=== PATIENT | male | born 1975 | race Caucasian/White ===

== ENCOUNTER 2017-07-13 19:44 | Emergency (ER) | payer SELFPAY ==
[~2017-07-13] VITALS: Ht 182.9 cm; Wt 110.0 kg
[~2017-07-13 19:44] MED LIST: CLIN1CAP5 PO; METF500 PO
[2017-07-13 19:47] VITALS: BP 132/83; PULSE 92; RESP 16; TEMP 97.8; O2SAT 97
[2017-07-13 22:20] VITALS: BP 154/84; PULSE 90; RESP 18; O2SAT 98
--- NOTE | 2017-07-13 22:40 | PD ---
HPI Chief Complaint: Skin Problem Time Seen by Provider: 22:18 Travel History International Travel<30 days: No Contact w/Intl Traveler<30days: No Traveled to known affect area: No History of Present Illness HPI 42yo M presents with c/o rash in his right lower back. States it started with some tingling feeling between his scapula and then had a rash that felt like pins and needles in right lower back. States he noticed his bedsheets were wet yesterday so he may have had vesicles. Denies any fever, itching, chest pain, sob, vomiting, abdominal pain, focal weakness or numbness. Pt was an IVDA but clean for 8 months and currently in a program. PFSH Past Medical History Arthritis: Yes Autoimmune Disease: No Anxiety: No Depression: No Cancer: No Cardiovascular Problems: No Cerebrovascular Accident: No Diabetes: Yes Patient Takes Glucophage: No Diminished Hearing: No Endocrine: Yes Genitourinary: No Immune Disorder: No Musculoskeletal: No Neurologic: No Psychiatric: No Reproductive: No Respiratory: No Immunizations Current: Yes Migraines: No Seizures: No Thyroid Disease: No Tetanus Vaccination: Unknown Influenza Vaccination: No Past Surgical History Abdominal Surgery: No Cardiac Surgery: No Ear Surgery: No Endocrine Surgery: No Eye Surgery: No Genitourinary Surgery: No Gynecologic Surgery: No Oral Surgery: No Thoracic Surgery: No Other Surgery: Yes Social History Alcohol Use: No Tobacco Use: No Substance Use: No (no drugs for 8 months) Allergies-Medications (Allergen,Severity, Reaction): Coded Allergies: Sulfa (Sulfonamide Antibiotics) (Unverified Allergy, Severe, CHILD, ) Reported Meds & Prescriptions Reported Meds & Active Scripts Active Tylenol (Acetaminophen) 325 Mg Tab 650 Mg PO Q6H PRN 5 Days Gabapentin 300 Mg Cap 300 Mg PO HS 5 Days Acyclovir 800 Mg Tab 800 Mg PO 5 TIMES A DAY 7 Days Review of Systems Except as stated in HPI: all other systems reviewed are Neg Physical Exam Narrative GENERAL: 42yo M not in distress. SKIN: Clusters of erythematous plaques in L4-L5 dermatome on right, some crusting over old vesicles. HEAD: Atraumatic. Normocephalic. CARDIOVASCULAR: Regular rate and rhythm. No murmur appreciated. RESPIRATORY: No accessory muscle use. Clear to auscultation. Breath sounds equal bilaterally. GASTROINTESTINAL: Abdomen soft, non-tender, nondistended. No rebound tenderness or guarding. MUSCULOSKELETAL: No obvious deformities. No clubbing. No cyanosis. No edema. NEUROLOGICAL: Awake and alert. No obvious cranial nerve deficits. Motor grossly within normal limits. Normal speech. PSYCHIATRIC: Appropriate mood and affect; insight and judgment normal. Data Data Last Documented VS Vital Signs Date Time Temp Pulse Resp B/P (MAP) Pulse Ox O2 Delivery O2 Flow Rate FiO2 07/13/17 22:20 90 18 154/84 (107) 98 Room Air 07/13/17 19:47 97.8 MDM Medical Decision Making Medical Screen Exam Complete: Yes Emergency Medical Condition: Yes Differential Diagnosis Herpes zoster vs. atopic dermatitis Narrative Course 42yo M with rash in his back consistent with zoster where the vesicles had already ruptured. Pt states pain was more pins and needles. No itching although pt placed some cortisone cream on it after googling. No fever. Pt is well appearing and I discussed that antiviral is not as effective at this time but will still give it. Will write prescribe for gabapentin for postherpatic neuralgia as needed. Otherwise pt can use ibuprofen or acetaminophen for pain. Diagnosis Primary Impression: Herpes zoster Qualified Codes: B02.9 - Zoster without complications Patient Instructions: General Instructions Departure Forms: Tests/Procedures Additional Instructions: Please follow up with your PMD in 3-7 days. Return to the ED if symptoms worsen. Med/Other Pt SpecificInfo: Prescription(s) given Scripts Acetaminophen (Tylenol) 325 Mg Tab 650 MG PO Q6H Y for PAIN SCALE 1 TO 4 for 5 Days, TAB 0 Refills Prov: Vonda Muñoz DO 07/13/17 Gabapentin (Gabapentin) 300 Mg Cap 300 MG PO HS for 5 Days, #5 CAP 0 Refills Prov: Vonda Muñoz DO 07/13/17 Acyclovir (Acyclovir) 800 Mg Tab 800 MG PO 5 TIMES A DAY for Mgmt Viral Infection for 7 Days, TAB 0 Refills Prov: Vonda Muñoz DO 07/13/17 Disposition: 01 DISCHARGE HOME Condition: Stable Vonda Muñoz DO Jul 13, 2017 22:40
[2017-07-13] MEDS ORDERED: GABA300C5 PO (23:50)
[2017-07-13] MEDS ORDERED: TYLE325T PO (23:50)
[2017-07-13] MEDS ORDERED: ACYC800T PO (23:50)
== END 2017-07-14 | disposition home or self-care (01) ==
LOC: NEPD 19:44
DX: B02.9 Zoster without complications (principal)
CPT/HCPCS: 99284

== ENCOUNTER 2017-10-24 17:02 | Inpatient (IN) | payer SELFPAY ==
[~2017-10-24 17:02] MED LIST changes: +ACYC800T PO; -CLIN1CAP5 PO; +GABA300C5 PO; -METF500 PO; +TYLE325T PO
[2017-10-24 17:04] VITALS: BP 153/68; PULSE 130; RESP 22; TEMP 103.2; O2SAT 99
[2017-10-24 17:15] VITALS: BP 123/60; PULSE 143; RESP 18; O2SAT 98
[2017-10-24] MEDS ORDERED: SODIUM CHLOR 0.9% 1000 ML INJ 1,000 ML IV ONE ×3 (17:19)
[2017-10-24 17:20] VITALS: O2SAT 98
[2017-10-24] MEDS ORDERED: ACETAMINOPHEN 325 MG TAB PO ONE (17:30)
[2017-10-24] MEDS ORDERED: PROCHLORPERAZINE INJ 10 MG/2 ML VIAL IV PUSH ONE (17:30)
[2017-10-24] MEDS ORDERED: diphenhydrAMINE HCL 50 MG/ML VIAL IV PUSH ONE (17:30)
--- NOTE | 2017-10-24 18:02 | RADRPT ---
EXAM DATE/TIME: 10/24/2017 17:30 [facility] COMPARISON: CHEST SINGLE AP, June 16, 2016, 20:15. INDICATIONS : Fever and flu like symptoms. MEDICAL HISTORY : None. SURGICAL HISTORY : None. ENCOUNTER: Initial ACUITY: 1 day PAIN SCORE: 0/10 LOCATION: Bilateral chest FINDINGS: Portable AP view of the chest demonstrates a normal-sized cardiac silhouette. No effusion, consolidat ion, or pneumothorax is visualized. The bones and soft tissues demonstrate no acute abnormality. CONCLUSION: No acute cardiopulmonary abnormality is identified. Alexis Suggs MD on October 24, 2017 at 17:59 Board Certified Radiologist. This report was verified electronically.
[2017-10-24 18:10] LABS: BASOPHIL % 0.4 % (0.0-2.0); HEMATOCRIT 38.2 % (39.0-51.0); HEMO FLAGS DIFF FINAL; LYMPH % 16.8 % (9.0-44.0); LYMPHOCYTE # 0.9 TH/MM3 (1.0-4.8); MEAN CELL VOLUME 86.9 FL (80.0-100.0); MEAN CORPUSCULAR HEMOGLOBIN 29.9 PG (27.0-34.0); MEAN CORPUSCULAR HGB CONC 34.4 % (32.0-36.0); MONO % 7.5 % (0.0-8.0); NEUT % 75.3 % (16.0-70.0); PLATELET COUNT 119 TH/MM3 (150-450); RED BLOOD COUNT 4.39 MIL/MM3 (4.50-5.90); RED CELL DISTRIBUTION WIDTH 13.2 % (11.6-17.2); WHITE BLOOD COUNT 5.3 TH/MM3 (4.0-11.0)
--- NOTE | 2017-10-24 18:20 | PD ---
HPI Chief Complaint: Headache Time Seen by Provider: 17:10 Travel History International Travel<30 days: No Contact w/Intl Traveler<30days: No Traveled to known affect area: No History of Present Illness HPI 42 yo M c/o headache for 1 day. pt woke up with cephalgia, generalize. He denies neck stiffness. He's had no loss of consciousness. He denies any prior history of headaches. His significant other reports that the patient abuses IV drugs including cocaine and Dilaudid. Appetite has been decreased he reports. He also reports a generalized sense of weakness. He denies significant history of subjective fever however upon arrival was found to be febrile. Location generalized. PFSH Past Medical History Arthritis: Yes Autoimmune Disease: No Anxiety: No Depression: No Cancer: No Cardiovascular Problems: No Cerebrovascular Accident: No Diabetes: Yes Patient Takes Glucophage: Yes Diminished Hearing: No Endocrine: Yes Gastrointestinal Disorders: No Genitourinary: No Headaches: No Immune Disorder: No Implanted Vascular Access Dvce: No Musculoskeletal: No Neurologic: No Psychiatric: No Reproductive: No Respiratory: No Immunizations Current: Yes Migraines: No Seizures: No Thyroid Disease: No Past Surgical History Abdominal Surgery: No Cardiac Surgery: No Ear Surgery: No Endocrine Surgery: No Eye Surgery: No Genitourinary Surgery: No Gynecologic Surgery: No Neurologic Surgery: No Oral Surgery: No Thoracic Surgery: No Other Surgery: Yes Social History Alcohol Use: No Tobacco Use: No Substance Use: Yes (cocaine, percocet) Allergies-Medications (Allergen,Severity, Reaction): Coded Allergies: Sulfa (Sulfonamide Antibiotics) (Unverified Allergy, Severe, CHILD, ) Reported Meds & Prescriptions Reported Meds & Active Scripts Active Tylenol (Acetaminophen) 325 Mg Tab 650 Mg PO Q6H PRN 5 Days Gabapentin 300 Mg Cap 300 Mg PO HS 5 Days Acyclovir 800 Mg Tab 800 Mg PO 5 TIMES A DAY 7 Days Review of Systems Except as stated in HPI: all other systems reviewed are Neg Neurologic: Positive: Headache Physical Exam Narrative GENERAL: 42-year-old male well-nourished well-developed speaking full sentences no acute distress speaking SKIN: Focused skin assessment warm/dry. HEAD: Atraumatic. Normocephalic. normal range of motion throughout the neck EYES: Pupils equal and round. No scleral icterus. No injection or drainage. ENT: No nasal bleeding or discharge. Mucous membranes pink and moist. NECK: Trachea midline. No JVD. No tenderness. Flexion and rotation normal. CARDIOVASCULAR: Tachycardia. Regular rhythm. RESPIRATORY: No accessory muscle use. Clear to auscultation. Breath sounds equal bilaterally. GASTROINTESTINAL: Abdomen soft, non-tender, nondistended. Hepatic and splenic margins not palpable. MUSCULOSKELETAL: No obvious deformities. No clubbing. No cyanosis. No edema. NEUROLOGICAL: Awake and alert. No obvious cranial nerve deficits. Motor grossly within normal limits. Normal speech. PSYCHIATRIC: Appropriate mood and affect; insight and judgment normal. Data Data Last Documented VS Vital Signs Date Time Temp Pulse Resp B/P (MAP) Pulse Ox O2 Delivery O2 Flow Rate FiO2 10/24/17 19:06 115 20 95/54 (68) 96 Room Air 10/24/17 17:04 103.2 Vital signs reviewed in Orders Orders Sepsis Workup Initiated (10/24/17 ) Complete Blood Count With Diff (10/24/17 17:19) Comprehensive Metabolic Panel (10/24/17 17:19) Lactic Acid Sepsis Protocol (10/24/17 17:19) Magnesium (Mg) (10/24/17 17:19) Ckmb (Isoenzyme) Profile (10/24/17 17:19) Troponin I (10/24/17 17:19) Urinalysis - C+S If Indicated (10/24/17 17:19) Influenzae A/B Antigen (10/24/17 17:19) Blood Culture (10/24/17 17:19) Chest, Single Ap (10/24/17 17:19) Blood Glucose (10/24/17 17:19) Ecg Monitoring (10/24/17 17:19) Iv Access Insert/Monitor (10/24/17 17:19) Oximetry (10/24/17 17:19) Oxygen Administration (10/24/17 17:19) Acetaminophen (Tylenol) (10/24/17 17:30) Sodium Chlor 0.9% 1000 Ml Inj (Ns 1000 M (10/24/17 17:19) Sodium Chlor 0.9% 1000 Ml Inj (Ns 1000 M (10/24/17 17:19) Sodium Chlor 0.9% 1000 Ml Inj (Ns 1000 M (10/24/17 17:19) Prochlorperazine Inj (Compazine Inj) (10/24/17 17:30) Diphenhydramine Inj (Benadryl Inj) (10/24/17 17:30) Drug Screen, Random Urine (10/24/17 17:19) Alcohol (Ethanol) (10/24/17 17:19) Ct Brain W/O Iv Contrast(Rout) (10/24/17 18:21) CKMB (10/24/17 17:40) CKMB% (10/24/17 17:40) Bacterial Antigen Csf (10/24/17 19:18) Csf Cell Count + Differential (10/24/17 19:18) Glucose, Csf (10/24/17 19:18) Total Protein, Csf (10/24/17 19:18) Csf Culture And Gram Stain (10/24/17 19:18) Ceftriaxone Inj (Rocephin Inj) (10/24/17 19:30) Vancomycin Inj (Vancomycin Inj) (10/24/17 19:30) Azithromycin Inj (Zithromax Inj) (10/24/17 19:30) Admit Order (Ed Use Only) (10/24/17 ) Violent Crimes Detective / Telemetry WHITNEY.Q8H (10/24/17 19:40) Vital Signs (Adult) Q4H (10/24/17 19:40) Activity Bed Rest (10/24/17 19:40) Labs Laboratory Tests Test 10/24/17 17:20 10/24/17 17:40 Urine Color DARK-YELLOW Urine Turbidity CLEAR Urine pH 6.0 Urine Specific [place] 1.034 Urine Protein 30 mg/dL Urine Glucose (UA) 1000 mg/dL Urine Ketones TRACE mg/dL Urine Occult Blood NEG Urine Nitrite NEG Urine Bilirubin NEG Urine Urobilinogen 2.0 MG/DL Urine Leukocyte Esterase NEG Urine RBC 2 /hpf Urine WBC 1 /hpf Urine Squamous Epithelial Cells <1 /hpf Urine Mucus FEW /lpf Microscopic Urinalysis Comment CATH-CULT NOT IND Urine Opiates Screen POS Urine Barbiturates Screen NEG Urine Amphetamines Screen NEG Urine Benzodiazepines Screen NEG Urine Cocaine Screen POS Urine Cannabinoids Screen NEG White Blood Count 5.3 TH/MM3 Red Blood Count 4.39 MIL/MM3 Hemoglobin 13.1 GM/DL Hematocrit 38.2 % Mean Corpuscular Volume 86.9 FL Mean Corpuscular Hemoglobin 29.9 PG Mean Corpuscular Hemoglobin Concent 34.4 % Red Cell Distribution Width 13.2 % Platelet Count 119 TH/MM3 Mean Platelet Volume 8.5 FL Neutrophils (%) (Auto) 75.3 % Lymphocytes (%) (Auto) 16.8 % Monocytes (%) (Auto) 7.5 % Eosinophils (%) (Auto) 0.0 % Basophils (%) (Auto) 0.4 % Neutrophils # (Auto) 4.0 TH/MM3 Lymphocytes # (Auto) 0.9 TH/MM3 Monocytes # (Auto) 0.4 TH/MM3 Eosinophils # (Auto) 0.0 TH/MM3 Basophils # (Auto) 0.0 TH/MM3 CBC Comment DIFF FINAL Differential Comment Blood Urea Nitrogen 16 MG/DL Creatinine 1.41 MG/DL Random Glucose 211 MG/DL Total Protein 7.8 GM/DL Albumin 3.6 GM/DL Calcium Level 7.8 MG/DL Magnesium Level 1.4 MG/DL Alkaline Phosphatase 66 U/L Aspartate Amino Transf (AST/SGOT) 80 U/L Alanine Aminotransferase (ALT/SGPT) 179 U/L Total Bilirubin 1.0 MG/DL Sodium Level 133 MEQ/L Potassium Level 3.5 MEQ/L Chloride Level 98 MEQ/L Carbon Dioxide Level 25.9 MEQ/L Anion Gap 9 MEQ/L Estimat Glomerular Filtration Rate 55 ML/MIN Lactic Acid Level 2.2 mmol/L Total Creatine Kinase 121 U/L Creatine Kinase MB 0.6 NG/ML Troponin I LESS THAN 0.02 NG/ML Ethyl Alcohol Level LESS THAN 3 MG/DL MDM Medical Decision Making Medical Screen Exam Complete: Yes Emergency Medical Condition: Yes Medical Record Reviewed: Yes Differential Diagnosis sepsis, meningitis, pneumonia, IV drug abuse Narrative Course Patient has headache plus fever. The workup thus far reveals the following: CBC & BMP Diagram 10/24/17 17:40 Total Protein 7.8, Albumin 3.6, Calcium Level 7.8 L, Magnesium Level 1.4 L, Alkaline Phosphatase 66, Aspartate Amino Transf (AST/SGOT) 80 H, Alanine Aminotransferase (ALT/SGPT) 179 H, Total Bilirubin 1.0 CT head normal Chest x-ray normal LP performed unsuccessfully Blood culture started Rocephin Vanco and acyclovir started Admission for IV abx Procedures Procedure Narrative After the risks and benefits were discussed the following procedure was performed: LUMBAR PUNCTURE: The patient was placed in the left lateral decubitus position. The lumbar area of the back was prepped with Betadine and sterilely draped. The L3 -- L4 interspace was infiltrated with 1% lidocaine plain. Number 22 gauge LP needle was unsuccessfully Advanced Twice. Diagnosis Primary Impression: Fever Qualified Codes: R50.9 - Fever, unspecified Additional Impressions: Headache Qualified Codes: R51 - Headache Polysubstance abuse Admitting Information Admitting Physician Requests: Admit Kelton Wheeler MD Oct 24, 2017 18:20
[2017-10-24 18:23] LABS: ALT (GPT) 179 U/L (12-78); ANION GAP 9 MEQ/L (5-15); AST (GOT) 80 U/L (15-37); BICARBONATE 25.9 MEQ/L (21.0-32.0); BLOOD UREA NITROGEN 16 MG/DL (7-18); CHLORIDE 98 MEQ/L (98-107); GLOMERULAR FILTRATION RATE 55 ML/MIN (>89); MAGNESIUM 1.4 MG/DL (1.5-2.5); POTASSIUM 3.5 MEQ/L (3.5-5.1); SODIUM (NA) 133 MEQ/L (136-145)
[2017-10-24 18:27] LABS: ALKALINE PHOSPHATASE 66 U/L (45-117); CREATINE KINASE 121 U/L (39-308)
[2017-10-24 18:29] VITALS: BP 107/53; PULSE 108; RESP 18; O2SAT 97
[2017-10-24 18:29] LABS: BLOOD, URINE NEG (NEG); GLUCOSE,URINE 1000 mg/dL (NEG); KETONE, URINE TRACE mg/dL (NEG); MUCUS URINE FEW /lpf (OCC); NITRITE,URINE NEG (NEG); SQUAMOUS EPITHELIAL CELL URINE <1 /hpf (0-5); URINE COLOR DARK-YELLOW (YELLW/STRAW)
[2017-10-24 18:30] LABS: COMMENT (UR) CATH-CULT NOT IND; CULTURE IF INDICATED CATH CULTURE NOT IND
[2017-10-24 18:38] LABS: ALCOHOL LESS THAN 3 MG/DL (0-5)
--- NOTE | 2017-10-24 18:47 | RADRPT ---
EXAM DATE/TIME: 10/24/2017 18:38 [facility] COMPARISON: No previous studies available for comparison. INDICATIONS : Cephalgia today. RADIATION DOSE: 53.71 CTDIvol (mGy) MEDICAL HISTORY : diabetes SURGICAL HISTORY : None. ENCOUNTER: Initial ACUITY: 1 day PAIN SCALE: 7/10 LOCATION: Bilateral head TECHNIQUE: Multiple contiguous axial images were obtained of the head. Using automated exposure control and adj ustment of the mA and/or kV according to patient size, radiation dose was kept as low as reasonably a chievable to obtain optimal diagnostic quality images. DICOM format image data is available electro nically for review and comparison. FINDINGS: CEREBRUM: The ventricles are normal for age. No evidence of midline shift, mass lesion, hemorrhage or acute in farction. No extra-axial fluid collections are seen. POSTERIOR FOSSA: The cerebellum and brainstem are intact. The 4th ventricle is midline. The cerebellopontine angle i s unremarkable. EXTRACRANIAL: The visualized portion of the orbits is intact. SKULL: The calvaria is intact. No evidence of skull fracture. CONCLUSION: No acute disease. Khai Issa MD on October 24, 2017 at 18:44 Board Certified Radiologist. This report was verified electronically.
[2017-10-24 18:51] LABS: CKMB 0.6 NG/ML (0.5-3.6)
[2017-10-24 19:06] VITALS: BP 95/54; PULSE 115; RESP 20; O2SAT 96
[2017-10-24] MEDS ORDERED: VANCOMYCIN INJ 2,000 MG in SODIUM CHLORID 0.9% 500 ML INJ 500 ML IV ONE (19:30)
[2017-10-24] MEDS ORDERED: AZITHROMYCIN INJ 500 MG in SODIUM CHLOR 0.9% 250 ML INJ 250 ML IV ONE (19:30)
[2017-10-24] MEDS ORDERED: cefTRIAXone INJ 2,000 MG in SODIUM CHLORIDE 0.9% INJ 100 ML IV ONE (19:30)
[2017-10-24] MEDS ORDERED: GLUCAGON 1 MG/ML VIAL OTHER PRN (19:45)
[2017-10-24] MEDS ORDERED: DEXTROSE 50% IN WATER 50 ML VIAL(D50) IV PUSH PRN (19:45)
[2017-10-24] MEDS ORDERED: SODIUM CHLORIDE 0.9% FLUSH 10 ML FLUSH IV FLUSH PRN (19:45)
[2017-10-24] MEDS ORDERED: Vancomycin Consult Pharmacy 1 EA OTHER SCH (19:45)
[2017-10-24] MEDS ORDERED: NALOXONE HCL 0.4 MG/ML AMP IV PUSH PRN (19:45)
[2017-10-24 20:00] VITALS: BP 115/56; PULSE 109; RESP 17; TEMP 96.6; O2SAT 93
[2017-10-24] MEDS: SODIUM CHLOR 0.9% 1000 ML INJ 1,000 ML IV SCH (20:00)
[2017-10-24 20:01] LABS: LACTIC ACID GHOST NOT REPORTABLE
[2017-10-24] MEDS ORDERED: INSULIN ASPART SUPPLEMENTAL SCALE SQ SCH (21:00)
[2017-10-24] MEDS: SODIUM CHLORIDE 0.9% FLUSH 10 ML FLUSH IV FLUSH SCH (21:00)
[2017-10-24] MEDS: ACYCLOVIR INJ 1,050 MG in SODIUM CHLORIDE 0.9% INJ 150 ML IV SCH (22:07)
[2017-10-25] VITALS (8 sets, daily range): BP systolic 98–133; BP diastolic 51–77; PULSE 90–123; RESP 16–18; TEMP 95.9–102.5; O2SAT 94–100
[2017-10-25] MEDS: ACETAMINOPHEN 325 MG TAB PO PRN ×2 (02:38→15:20)
--- NOTE | 2017-10-25 03:56 | HHI.HP ---
HPI Service [facility] Primary Care Physician No Primary Care Physician Admission Diagnosis Sepsis; Headache; Poss Meningitis Diagnoses: Travel History International Travel<30 Days: No Contact w/Intl Traveler <30 Da: No Traveled to Known Affected Are: No History of Present Illness hx from patient, ER provider communication and review of records bad headaches all day had fever no photophobia no neck rigidty no urine or bowel symptoms no sick contacts no kids in daycare no discharge no sinus symptoms no toothaches uses iv dilaudid daily never had endocarditis prior Review of Systems Except as stated in HPI: all other systems reviewed are Neg Past Family Social History Past Medical History dm Past Surgical History left pelvis and left femur replaced Allergies: Coded Allergies: Sulfa (Sulfonamide Antibiotics) (Unverified Allergy, Severe, CHILD, ) Family History dm runs in the family Social History no etoh abuse no smoking uses iv dilaudid Physical Exam Vital Signs Vital Signs Date Time Temp Pulse Resp B/P (MAP) Pulse Ox O2 Delivery O2 Flow Rate FiO2 10/25/17 00:00 102.3 123 17 106/55 (72) 95 10/24/17 20:52 10/24/17 20:00 96.6 109 17 115/56 (75) 93 10/24/17 19:06 115 20 95/54 (68) 96 Room Air 10/24/17 18:29 108 18 107/53 (71) 97 Room Air 10/24/17 17:20 98 Room Air 10/24/17 17:20 98 Room Air 10/24/17 17:15 143 18 123/60 (81) 98 Room Air 10/24/17 17:04 103.2 130 22 153/68 (96) 99 Room Air Physical Exam GENERAL: This is a well-nourished, well-developed patient, in no apparent distress. diaphoretic SKIN: No rashes, ecchymoses or lesions. Cool and dry. HEAD: Atraumatic. Normocephalic. No temporal or scalp tenderness. EYES: No scleral icterus. No injection or drainage. ENT: Nose without bleeding, purulent drainage or septal hematoma. Airway patent. NECK: Trachea midline. No JVD. Supple, nontender, no meningeal signs. CARDIOVASCULAR: Regular rate and rhythm without murmurs, gallops, or rubs. RESPIRATORY: Clear to auscultation. Breath sounds equal bilaterally. No wheezes , rales, or rhonchi. GASTROINTESTINAL: Abdomen soft, non-tender, nondistended. No guarding. MUSCULOSKELETAL: Extremities without clubbing, cyanosis, or edema. No calf tenderness. NEUROLOGICAL: Awake and alert. Motor and sensory grossly within normal limits. Normal speech. Laboratory Laboratory Tests Test 10/24/17 17:20 10/24/17 17:40 10/24/17 20:50 Urine Color DARK-YELLOW Urine Turbidity CLEAR Urine pH 6.0 Urine Specific [place] 1.034 Urine Protein 30 Urine Glucose (UA) 1000 Urine Ketones TRACE Urine Occult Blood NEG Urine Nitrite NEG Urine Bilirubin NEG Urine Urobilinogen 2.0 Urine Leukocyte Esterase NEG Urine RBC 2 Urine WBC 1 Urine Squamous Epithelial Cells <1 Urine Mucus FEW Microscopic Urinalysis Comment CATH-CULT NOT IND Urine Opiates Screen POS Urine Barbiturates Screen NEG Urine Amphetamines Screen NEG Urine Benzodiazepines Screen NEG Urine Cocaine Screen POS Urine Cannabinoids Screen NEG White Blood Count 5.3 Red Blood Count 4.39 Hemoglobin 13.1 Hematocrit 38.2 Mean Corpuscular Volume 86.9 Mean Corpuscular Hemoglobin 29.9 Mean Corpuscular Hemoglobin Concent 34.4 Red Cell Distribution Width 13.2 Platelet Count 119 Mean Platelet Volume 8.5 Neutrophils (%) (Auto) 75.3 Lymphocytes (%) (Auto) 16.8 Monocytes (%) (Auto) 7.5 Eosinophils (%) (Auto) 0.0 Basophils (%) (Auto) 0.4 Neutrophils # (Auto) 4.0 Lymphocytes # (Auto) 0.9 Monocytes # (Auto) 0.4 Eosinophils # (Auto) 0.0 Basophils # (Auto) 0.0 CBC Comment DIFF FINAL Differential Comment Blood Urea Nitrogen 16 Creatinine 1.41 Random Glucose 211 Total Protein 7.8 Albumin 3.6 Calcium Level 7.8 Magnesium Level 1.4 Alkaline Phosphatase 66 Aspartate Amino Transf (AST/SGOT) 80 Alanine Aminotransferase (ALT/SGPT) 179 Total Bilirubin 1.0 Sodium Level 133 Potassium Level 3.5 Chloride Level 98 Carbon Dioxide Level 25.9 Anion Gap 9 Estimat Glomerular Filtration Rate 55 Lactic Acid Level 2.2 1.3 Total Creatine Kinase 121 Creatine Kinase MB 0.6 Troponin I LESS THAN 0.02 Ethyl Alcohol Level LESS THAN 3 Date/Time Source Procedure Growth Status 10/24/17 17:30 Blood Peripheral Aerobic Blood Culture Pending Received 10/24/17 17:30 Blood Peripheral Anaerobic Blood Culture Pending Received 10/24/17 18:00 Nasal Aspirate Influenza Types A,B Antigen ([facility]ALDO) - Final NEGATIVE FOR FLU A AND B ANTIGEN.... Complete Result Diagram: 10/24/17 1740 10/24/17 1740 Imaging Last [address] 10/24/17 1821 Signed Impressions: Service Date/Time: Tuesday, October 24, 2017 18:38 - CONCLUSION: No acute disease. Khai Issa MD Chest X-Ray 10/24/17 1719 Signed Impressions: Service Date/Time: Tuesday, October 24, 2017 17:30 - CONCLUSION: No acute cardiopulmonary abnormality is identified. MD Jailene Wray VTE Risk Assessment Caprini VTE Risk Assessment: Mod/High Risk (score >= 2) Caprini Risk Assessment Model Point Value = 1 Point Value = 2 Point Value = 3 Point Value = 5 Age 41-60 Minor surgery BMI > 25 kg/m2 Swollen legs Varicose veins or History of unexplained or recurrent spontaneous Oral contraceptives or hormone replacement Sepsis (< 1 month) Serious lung disease, including pneumonia (< 1 month) Abnormal pulmonary function Acute myocardial infarction Congestive heart failure (< 1 month) History of inflammatory bowel disease Medical patient at bed rest Age 61-74 Arthroscopic surgery Major open surgery (> 45 min) Laparoscopic surgery (> 45 min) Malignancy Confined to bed (> 72 hours) Immobilizing plaster cast Central venous access Age >= 75 History of VTE Family history of VTE Factor V Leiden Prothrombin [id number] Lupus anticoagulant Anticardiolipin antibodies Elevated serum homocysteine Heparin-induced thrombocytopenia Other congenital or acquired thrombophilia Stroke (< 1 month) Elective arthroplasty Hip, pelvis, or leg fracture Acute spinal cord injury (< 1 month) Prophylaxis Regimen Total Risk Factor Score Risk Level Prophylaxis Regimen 0-1 Low Early ambulation 2 Moderate Order ONE of the following: *Sequential Compression Device (SCD) *Heparin 5000 units SQ BID 3-4 Higher Order ONE of the following medications: *Heparin 5000 units SQ TID *Enoxaparin/Lovenox 40 mg SQ daily (WT < 150 kg, CrCl > 30 mL/min) *Enoxaparin/Lovenox 30 mg SQ daily (WT < 150 kg, CrCl > 10-29 mL/min) *Enoxaparin/Lovenox 30 mg SQ BID (WT < 150 kg, CrCl > 30 mL/min) AND/OR *Sequential Compression Device (SCD) 5 or more Highest Order ONE of the following medications: *Heparin 5000 units SQ TID (Preferred with Epidurals) *Enoxaparin/Lovenox 40 mg SQ daily (WT < 150 kg, CrCl > 30 mL/min) *Enoxaparin/Lovenox 30 mg SQ daily (WT < 150 kg, CrCl > 10-29 mL/min) *Enoxaparin/Lovenox 30 mg SQ BID (WT < 150 kg, CrCl > 30 mL/min) AND *Sequential Compression Device (SCD) Assessment and Plan Assessment and Plan Impression: high grade fever headaches - possible meningitis given fevers ivda with dilaudid on daily basis possible endocarditis hx of DM Plan: will follow blood cultures meningitic doses of vanco/ rocephin/acyclovir till tap IR consult for LP in am echo in am monitor fingersticks and cover with sliding scale SCD for dvt prophylaxis due to LP Discussed Condition With patient, at bedside, ER physician Physician Certification 2 Midnight Certification Type: Admission for Inpatient Services Order for Inpatient Services The services are ordered in accordance with Medicare regulations or non- Medicare payer requirements, as applicable. In the case of services not specified as inpatient-only, they are appropriately provided as inpatient services in accordance with the 2-midnight benchmark. Estimated LOS (days): 2 days is the estimated time the patient will need to remain in the hospital, assuming treatment plan goals are met and no additional complications. Post-Hospital Plan: Home Bennett Liang MD Oct 25, 2017 03:56
[2017-10-25] MEDS ORDERED: DEXTROSE 50% IN WATER 50 ML VIAL(D50) IV PUSH PRN (04:00)
[2017-10-25] MEDS ORDERED: GLUCAGON 1 MG/ML VIAL OTHER PRN (04:00)
[2017-10-25] MEDS: ACYCLOVIR INJ 1,050 MG in SODIUM CHLORIDE 0.9% INJ 150 ML IV SCH ×2 (04:08→12:57)
[2017-10-25] MEDS: SODIUM CHLOR 0.9% 1000 ML INJ 1,000 ML IV SCH ×3 (04:08→19:25)
[2017-10-25] MEDS ORDERED: LORazepam 0.5 MG TAB PO PRN (06:30)
[2017-10-25] MEDS: INSULIN ASPART SUPPLEMENTAL SCALE SQ SCH ×4 (07:55→21:16)
[2017-10-25] MEDS ORDERED: cefTRIAXone INJ 2,000 MG in SODIUM CHLORIDE 0.9% INJ 100 ML IV SCH (08:00)
[2017-10-25] MEDS: SODIUM CHLORIDE 0.9% FLUSH 10 ML FLUSH IV FLUSH SCH ×2 (08:31→21:00)
[2017-10-25 09:05] LABS: HEMATOCRIT 37.2 % (39.0-51.0); MEAN CELL VOLUME 87.1 FL (80.0-100.0); MEAN CORPUSCULAR HEMOGLOBIN 29.5 PG (27.0-34.0); MEAN CORPUSCULAR HGB CONC 33.9 % (32.0-36.0); PLATELET COUNT 100 TH/MM3 (150-450); RED BLOOD COUNT 4.27 MIL/MM3 (4.50-5.90); RED CELL DISTRIBUTION WIDTH 13.5 % (11.6-17.2); WHITE BLOOD COUNT 4.3 TH/MM3 (4.0-11.0)
[2017-10-25 09:09] LABS: HEMO FLAGS AUTO DIFF
[2017-10-25 09:15] LABS: APTT (PATIENT) 28.2 SEC (24.3-30.1); INTERNATIONAL NORMALIZED RATIO 1.4 RATIO; PROTHROMBIN TIME - PATIENT 13.8 SEC (9.8-11.6)
[2017-10-25 09:27] LABS: ALT (GPT) 131 U/L (12-78); ANION GAP 8 MEQ/L (5-15); AST (GOT) 63 U/L (15-37); BICARBONATE 23.7 MEQ/L (21.0-32.0); BLOOD UREA NITROGEN 13 MG/DL (7-18); CHLORIDE 106 MEQ/L (98-107); GLOMERULAR FILTRATION RATE 83 ML/MIN (>89); POTASSIUM 3.6 MEQ/L (3.5-5.1); SODIUM (NA) 138 MEQ/L (136-145)
[2017-10-25 09:28] LABS: ALKALINE PHOSPHATASE 50 U/L (45-117); TOTAL BILIRUBIN ADULT 0.7 MG/DL (0.2-1.0)
[2017-10-25 09:41] LABS: BANDS 13 % (0-6); BASOPHILS 1 % (0-2); NEUTROPHIL # MANUAL DIFF 3.4 TH/MM3 (1.8-7.7); POLYS (SEG NEUTROPHILS) 67 % (16-70); WBC DIFF SAMPLE 100
[2017-10-25 09:42] LABS: PLATELET ESTIMATE SMEAR LOW (NORMAL); PLATELET MORPHOLOGY NORMAL (NORMAL); SCAN/DIFF FINAL DIFF MANUAL
--- NOTE | 2017-10-25 15:24 | HHI.PR ---
Subjective Remarks Follow-up meningitis. Resolving headache but continues to have intermittent chills. Face looks flushed. Still not decided on LP wants to talk to his . Patient counseled regarding IVDU. Discussed with RN Objective Vitals Vital Signs Date Time Temp Pulse Resp B/P (MAP) Pulse Ox O2 Delivery O2 Flow Rate FiO2 10/25/17 12:00 97.3 112 17 133/77 (95) 100 10/25/17 08:00 97.9 92 16 98/53 (68) 94 10/25/17 04:08 105 10/25/17 04:00 95.9 94 18 99/55 (70) 97 10/25/17 00:00 102.3 123 17 106/55 (72) 95 10/24/17 20:52 10/24/17 20:00 96.6 109 17 115/56 (75) 93 10/24/17 19:06 115 20 95/54 (68) 96 Room Air 10/24/17 18:29 108 18 107/53 (71) 97 Room Air 10/24/17 17:20 98 Room Air 10/24/17 17:20 98 Room Air 10/24/17 17:15 143 18 123/60 (81) 98 Room Air 10/24/17 17:04 103.2 130 22 153/68 (96) 99 Room Air I/O 10/24/17 10/24/17 10/24/17 10/25/17 10/25/17 10/25/17 07:00 15:00 23:00 07:00 15:00 23:00 Intake Total 3450 ml 1710 ml Output Total 300 ml 300 ml Balance 3150 ml 1410 ml Intake Oral 240 ml IV Total 3450 ml 1470 ml Output Urine Total 300 ml 300 ml # Voids 1 Result Diagram: 10/25/17 0824 10/25/17 0824 Imaging Last Impressions Head CT 10/24/17 1821 Signed Impressions: Service Date/Time: Tuesday, October 24, 2017 18:38 - CONCLUSION: No acute disease. Khai Issa MD Chest X-Ray 10/24/17 1719 Signed Impressions: Service Date/Time: Tuesday, October 24, 2017 17:30 - CONCLUSION: No acute cardiopulmonary abnormality is identified. Alexis Suggs MD Objective Remarks GENERAL: This is a well-nourished, well-developed patient, in no apparent distress. SKIN: Face is flushed HEAD: Atraumatic. Normocephalic. No temporal or scalp tenderness. EYES: No scleral icterus. No injection or drainage. ENT: Nose without bleeding, purulent drainage or septal hematoma. Airway patent. NECK: Trachea midline. No JVD. Supple, nontender, no meningeal signs. CARDIOVASCULAR: Regular rate and rhythm without murmurs, gallops, or rubs. RESPIRATORY: Clear to auscultation. Breath sounds equal bilaterally. No wheezes , rales, or rhonchi. GASTROINTESTINAL: Abdomen soft, non-tender, nondistended. No guarding. MUSCULOSKELETAL: Extremities without clubbing, cyanosis, or edema. No calf tenderness. Track warner bilateral forearms NEUROLOGICAL: Awake and alert. Motor and sensory grossly within normal limits. Normal speech. A/P Problem List: (1) Fever ICD Code: R50.9 - Fever, unspecified Status: Acute (2) Headache ICD Code: R51 - Headache Status: Acute (3) Polysubstance abuse ICD Code: F19.10 - Other psychoactive substance abuse, uncomplicated Status: Acute Assessment and Plan Meningitis suspected with high grade fever, headaches in an ivda with dilaudid on daily basis. Refusing LP. Continue meningitic doses of vanco/ rocephin/ acyclovir. ID has been consulted. Counseled regarding IVDU possible endocarditis. Obtain echocardiogram results Transaminitis. Check hepatitis profile hx of DM . Monitor fingerstick with sliding scale coverage Acute kidney injury secondary to infection. Improving on IV hydration Acute thrombocytopenia likely secondary to infection. Monitor SCD for dvt prophylaxis Discharge Planning Not ready for discharge Problem Qualifiers (1) Fever: Qualified Codes: R50.9 - Fever, unspecified (2) Headache: Qualified Codes: R51 - Headache Damien Smith MD Oct 25, 2017 15:24
[2017-10-25] MEDS ORDERED: VANCOMYCIN INJ 2,000 MG in SODIUM CHLORID 0.9% 500 ML INJ 500 ML IV SCH (16:00)
--- NOTE | 2017-10-25 16:36 | ECHRPT ---
Indication: SEPSIS, ENDOCARDITIS CONCLUSIONS The left ventricular systolic function is mildly reduced with an estimated ejection fraction in the range of 45- 50%. Mild concentric left ventricular hypertrophy. Trace mitral valve regurgitation. There is trace tricuspid valve regurgitation. Moderate left pleural effusion. BP: / HR: Rhythm: Sinus MEASUREMENTS (Male / Female) Normal Values Technical Quality:Fair 2D ECHO LV Diastolic Diameter PLAX 5.3 cm 4.2 - 5.9 / 3.9 - 5.3 cm LV Systolic Diameter PLAX 4.2 cm IVS Diastolic Thickness 1.2 cm 0.6 - 1.0 / 0.6 - 0.9 cm LVPW Diastolic Thickness 1.2 cm 0.6 - 1.0 / 0.6 - 0.9 cm LV Relative Wall Thickness 0.4 RV Internal Dim ED PLAX 2.3 cm LVOT Diameter 2.4 cm Aortic Root Diameter 3.4 cm LA Systolic Diameter LX 2.8 cm 3.0 - 4.0 / 2.7 - 3.8 cm M-MODE AV Cusp Separation MM 2.8 cm DOPPLER AV Peak Velocity 123.0 cm/s AV Peak Gradient 6.1 mmHg AV Mean Gradient 3.0 mmHg AV Velocity Time Integral 23.2 cm LVOT Peak Velocity 76.7 cm/s LVOT Peak Gradient 2.4 mmHg LVOT Velocity Time Integral 17.4 cm AV Area Cont Eq vti 3.4 cm AV Area Cont Eq pk 2.8 cm Mitral E Point Velocity 94.8 cm/s Mitral A Point Velocity 59.2 cm/s Mitral E to A Ratio 1.6 LV E' Lateral Velocity 10.8 cm/s Mitral E to LV E' Lateral Ratio 8.8 LV E' Septal Velocity 10.8 cm/s Mitral E to LV E' Septal Ratio 8.8 TR Peak Velocity 236.0 cm/s TR Peak Gradient 22.3 mmHg Right Atrial Pressure 10.0 mmHg Pulmonary Artery Systolic Pressu 32.3 mmHg Right Ventricular Systolic Press 32.3 mmHg PV Peak Velocity 71.4 cm/s PV Peak Gradient 2.0 mmHg FINDINGS LEFT VENTRICLE Normal left ventricular size. Mild concentric left ventricular hypertrophy. The left ventricular systolic function is mildly reduced with an estimated ejection fraction in the range of 45- 50%. RIGHT VENTRICLE Normal right ventricular size and systolic function. LEFT ATRIUM The left atrial size is [id number] dilated. RIGHT ATRIUM The right atrial size is normal. ATRIAL SEPTUM Normal atrial septal thickness. AORTA The aortic root and proximal ascending aorta are normal in size on limited imaging. MITRAL VALVE Structurally normal mitral valve. No mitral valve stenosis. Trace mitral valve regurgitation. AORTIC VALVE Grossly normal. No aortic valve regurgitation. No aortic valve stenosis. TRICUSPID VALVE Structurally normal tricuspid valve. No tricuspid valve stenosis. There is trace tricuspid valve regurgitation. PULMONARY VALVE The pulmonary valve is not well visualized. PERICARDIUM No pericardial effusion. Moderate left pleural effusion Javid Wheeler DO (Electronically Signed) Final Date:25 October 2017 16:36
--- NOTE | 2017-10-25 17:28 | MB ---
cc: ZACHERY CASAS MD DATE OF CONSULTATION 10/25/[address] Liang REASON FOR CONSULTATION IVDU, fever and headache. HISTORY OF PRESENT ILLNESS This is a 42-year-old white male who is a known IV drug user who presented to the emergency department because of headache. The patient reportedly woke up with neck stiffness and headache which he said occurred suddenly. He had also had fever and presented to the emergency department for evaluation. He states that he has never had problems with headaches before. He had elevated heart rate in the emergency department. The white blood cell count was normal. The patient was started on oral antibiotics and lumbar puncture was recommended to him but he declined. He had a CT scan of the head which was negative. Chest x-ray was also negative. The patient denies upper respiratory symptoms. He denies nausea, vomiting, photophobia, body aches or pains. He tells me that he has no headache all day today. He tells me that he gets up to the bathroom and, when he does so, he has no dizziness or other problems. He denies neck stiffness currently. The patient is known to use IV drugs in the form of cocaine and Dilaudid. The patient was seen in the hospital in June for a skin lesion on his back. It was felt that he likely had herpes zoster. However, he states that he thinks it was a reaction to energy and that stopped using the energy drink and the rash went away and when he started using the same energy drink the same rash came back. He stated that he had no granulation or vesicles form on the back at the time. PAST MEDICAL HISTORY 1. Diabetes mellitus, 2. Left pelvic surgery. ALLERGIES SULFA MEDICATIONS 1. Vancomycin. 2. Ceftriaxone. 3. Acyclovir 4. Ativan 5. Insulin SOCIAL HISTORY . No tobacco, no alcohol. Positive IV drug use. FAMILY HISTORY Noncontributory REVIEW OF SYSTEMS Negative on 10-point review. PHYSICAL EXAMINATION GENERAL: This is a well-developed male who is in no acute distress. He is awake, alert and oriented. VITAL SIGNS: Temperature 97.3, BP 130/77, respirations 17, heart rate 112. HEENT: She is head is atraumatic. Extraocular movements grossly intact, pupils reactive to light. No icterus. Oropharynx moist mucosa without lesions. NECK: Supple. No adenopathy. LUNGS: Clear to auscultation. HEART: Regular rate and rhythm. No murmurs, rubs or gallops. ABDOMEN: Soft, bowel sounds diminished but present, soft, nontender. RECTAL: Not performed. EXTREMITIES: No clubbing, cyanosis or edema. SKIN: No rash. NEUROLOGIC: Nonfocal. PSYCHIATRIC: The patient is calm and cooperative. LABORATORY DATA WBC is 4.3, platelets of 100, 67% neutrophils, 30% bands. Hemoglobin 12.6. Creatinine 0.99, BUN 13, estimated GFR 83, AST 63, ALT 131. IMPRESSION Headache and fever in a patient with IV drug abuse history. The patient has normal white blood cell count and currently states that he his headache is completely gone. 1. Possible viral syndrome with complaint of fever and headache. The patient has refused therapy and therefore we do not have the benefit of the CSF numbers to be able to diagnose the cause of his headache further at this point. However, the headaches are completely gone. He has blood cultures drawn, but there is a negative growth in one day. He has no other symptoms to indicate source of the fevers at this time besides a headache. RECOMMENDATIONS 1. Stop all antibiotics. 2. Monitor the temperature overnight and the headache overnight and, if the patient has high fever or return of headache, strongly consider lumbar puncture for further evaluation. If he remains without headache and fever, then I think we can safely discharge him from the hospital. Thank you for this consultation. Zachery Casas MD FD/ /4:11 PM /5:04 PM
[2017-10-26] VITALS: BP 109/68; PULSE 98; RESP 18; TEMP 95.7; O2SAT 98
[2017-10-26] MEDS: SODIUM CHLOR 0.9% 1000 ML INJ 1,000 ML IV SCH ×3 (03:55→20:00)
[2017-10-26] MEDS ORDERED: VANCOMYCIN INJ 1,750 MG in SODIUM CHLORID 0.9% 500 ML INJ 500 ML IV SCH (04:00)
[2017-10-26 08:00] VITALS: BP 122/79; PULSE 109; RESP 17; TEMP 98.1; O2SAT 100
[2017-10-26] MEDS: INSULIN ASPART SUPPLEMENTAL SCALE SQ SCH ×4 (08:00→22:45)
[2017-10-26] MEDS: SODIUM CHLORIDE 0.9% FLUSH 10 ML FLUSH IV FLUSH SCH ×2 (10:29→21:45)
[2017-10-26 11:21] LABS: AUTOMATED NEUTROPHIL # 3.8 TH/MM3 (1.8-7.7); BASOPHIL % 0.4 % (0.0-2.0); EOSINOPHIL # 0.1 TH/MM3 (0-0.4); EOSINOPHIL % 2.2 % (0.0-4.0); HEMATOCRIT 35.3 % (39.0-51.0); LYMPH % 18.4 % (9.0-44.0); MEAN CELL VOLUME 86.7 FL (80.0-100.0); MEAN CORPUSCULAR HEMOGLOBIN 29.4 PG (27.0-34.0); MONO % 9.2 % (0.0-8.0); NEUT % 69.8 % (16.0-70.0); PLATELET COUNT 97 TH/MM3 (150-450); RED BLOOD COUNT 4.07 MIL/MM3 (4.50-5.90); RED CELL DISTRIBUTION WIDTH 13.8 % (11.6-17.2); WHITE BLOOD COUNT 5.4 TH/MM3 (4.0-11.0)
[2017-10-26 11:26] LABS: HEMO FLAGS AUTO DIFF
[2017-10-26 11:57] LABS: ANION GAP 8 MEQ/L (5-15); AST (GOT) 64 U/L (15-37); BICARBONATE 22.8 MEQ/L (21.0-32.0); BLOOD UREA NITROGEN 11 MG/DL (7-18); CHLORIDE 101 MEQ/L (98-107); GLOMERULAR FILTRATION RATE 96 ML/MIN (>89); MAGNESIUM 1.7 MG/DL (1.5-2.5); POTASSIUM 3.6 MEQ/L (3.5-5.1); SODIUM (NA) 132 MEQ/L (136-145)
[2017-10-26 11:58] LABS: ALT (GPT) 128 U/L (12-78)
[2017-10-26 12:00] VITALS: BP 114/63; PULSE 97; RESP 16; TEMP 98.3; O2SAT 96
[2017-10-26 12:01] LABS: ALKALINE PHOSPHATASE 64 U/L (45-117); TOTAL BILIRUBIN ADULT 0.5 MG/DL (0.2-1.0)
[2017-10-26 12:23] LABS: PLATELET ESTIMATE SMEAR LOW (NORMAL)
[2017-10-26 12:24] LABS: PLATELET MORPHOLOGY NORMAL (NORMAL); SCAN/DIFF AUTO DIFF CONFIRMED
--- NOTE | 2017-10-26 14:52 | HHI.IDPN ---
Note Infectious Disease Note Patient feels okay. Afebrile. No headache, nausea or vomiting. The patient was seen in the hospital in June for a skin lesion on his back. It was felt that he likely had herpes zoster. However, he states that he thinks it was a reaction to energy and that stopped using the energy drink and the rash went away and when he started using the same energy drink the same rash came back. PAST MEDICAL HISTORY 1. Diabetes mellitus, 2. Left pelvic surgery. ALLERGIES SULFA Current Medications Medications (Trade) Dose Ordered Sig/Christopher Route PRN Reason Start Time Stop Time Status Last Admin Dose Admin Sodium Chloride (NS Flush) 2 ml UNSCH PRN IV FLUSH FLUSH AFTER USING IV ACCESS 10/24/17 19:45 Sodium Chloride (NS Flush) 2 ml BID IV FLUSH 10/24/17 21:00 10/26/17 10:29 Naloxone HCl (Narcan Inj) 0.4 mg UNSCH PRN IV PUSH SEE LABEL COMMENTS 10/24/17 19:45 Sodium Chloride 1,000 ml @ 125 mls/hr Q8H IV 10/24/17 20:00 10/26/17 12:00 Dextrose (D50w (Vial) Inj) 50 ml UNSCH PRN IV PUSH HYPOGLYCEMIA-SEE COMMENTS 10/24/17 19:45 Glucagon (Glucagon Inj) 1 mg UNSCH PRN OTHER HYPOGLYCEMIA-SEE COMMENTS 10/24/17 19:45 Acetaminophen (Tylenol) 650 mg Q4H PRN PO fever >101, pain 10/25/17 02:30 10/25/17 15:20 Insulin Aspart (NovoLOG SUPPLEMENTAL SCALE) 1 ACHS SLIDING SCALE SQ 10/25/17 08:00 10/26/17 13:08 Lorazepam (Ativan) 0.5 mg Q8H PRN PO withdrawal sxs or agitation 10/25/17 06:30 PHYSICAL EXAMINATION GENERAL: No acute distress. He is awake, alert and oriented. HEENT: No icterus. Oropharynx moist mucosa without lesions. NECK: Supple. No adenopathy. LUNGS: Clear to auscultation. HEART: Regular rate and rhythm. No murmurs, rubs or gallops. ABDOMEN: Soft, bowel sounds diminished but present, soft, nontender. EXTREMITIES: No clubbing, cyanosis or edema. SKIN: No rash. NEUROLOGIC: Nonfocal. PSYCHIATRIC: The patient is calm and cooperative. IMPRESSION Headache and fever. Possible viral syndrome with complaint of fever and headache. Headache has resolved. Temp normal. RECOMMENDATIONS 1. Observe without antibiotics. 2. If the fever and headache doers not recur he can be discharged tomorrow from my standpoint. 3. D/C isolation and allow patient to ambulate the halls. Geovanni Claire MD Oct 26, 2017 14:52
[2017-10-26 16:00] VITALS: BP 112/68; PULSE 95; RESP 16; TEMP 98.1; O2SAT 97
--- NOTE | 2017-10-26 16:05 | HHI.PR ---
Subjective Remarks Follow-up fever and headache. Continues to have intermittent fever but resolved headache. Seen with . Discussed with RN Objective Vitals Vital Signs Date Time Temp Pulse Resp B/P (MAP) Pulse Ox O2 Delivery O2 Flow Rate FiO2 10/26/17 12:00 98.3 97 16 114/63 (80) 96 10/26/17 08:00 98.1 109 17 122/79 (93) 100 10/26/17 00:00 95.7 98 18 109/68 (82) 98 10/25/17 23:00 90 10/25/17 20:00 90 10/25/17 20:00 96.4 98 18 115/61 (79) 98 I/O 10/25/17 10/25/17 10/25/17 10/26/17 10/26/17 10/26/17 07:00 15:00 23:00 07:00 15:00 23:00 Intake Total 1710 ml 250 ml 1420 ml 240 ml Output Total 300 ml Balance 1410 ml 250 ml 1420 ml 240 ml Intake Oral 240 ml 900 ml 240 ml IV Total 1470 ml 250 ml 520 ml Output Urine Total 300 ml # Voids 1 4 2 # Bowel Movements 1 Result Diagram: 10/26/17 0950 10/26/17 0950 Imaging Last Impressions Head CT 10/24/17 1821 Signed Impressions: Service Date/Time: Tuesday, October 24, 2017 18:38 - CONCLUSION: No acute disease. Khai Issa MD Chest X-Ray 10/24/17 1719 Signed Impressions: Service Date/Time: Tuesday, October 24, 2017 17:30 - CONCLUSION: No acute cardiopulmonary abnormality is identified. Alexis Suggs MD Objective Remarks GENERAL: This is a well-nourished, well-developed patient, in no apparent distress. SKIN: No rash or lesions CARDIOVASCULAR: Regular rate and rhythm without murmurs, gallops, or rubs. RESPIRATORY: Clear to auscultation. Breath sounds equal bilaterally. No wheezes , rales, or rhonchi. GASTROINTESTINAL: Abdomen soft, non-tender, nondistended. No guarding. MUSCULOSKELETAL: Extremities without clubbing, cyanosis, or edema. No calf tenderness. Track warner bilateral forearms NEUROLOGICAL: Awake and alert. Motor and sensory grossly within normal limits. Normal speech. Procedures Non- A/P Problem List: (1) Fever ICD Code: R50.9 - Fever, unspecified Status: Acute (2) Headache ICD Code: R51 - Headache Status: Acute (3) Polysubstance abuse ICD Code: F19.10 - Other psychoactive substance abuse, uncomplicated Status: Acute Assessment and Plan Likely viral infection. Meningitis suspected with high grade fever, headaches in an ivda with dilaudid on daily basis. Refusing LP. Resolved headache continues to have intermittent fever. ID recommended to discontinue meningitic doses of vanco/ rocephin/acyclovir. Cultures negative so far. Counseled regarding IVDU possible endocarditis. Unremarkable echocardiogram Transaminitis. Patient with hepatitis C. Needs outpatient follow-up Hyperglycemia history of DM . Monitor fingerstick with sliding scale coverage. Start NPH 7 units twice a day. Diabetic education Acute kidney injury secondary to infection. Improving on IV hydration Acute thrombocytopenia likely secondary to infection. Monitor SCD for dvt prophylaxis Discharge Planning Not ready for discharge Problem Qualifiers (1) Fever: Qualified Codes: R50.9 - Fever, unspecified (2) Headache: Qualified Codes: R51 - Headache Damien Smith MD Oct 26, 2017 16:05
--- NOTE | 2017-10-26 18:01 | HHI.DCPOC ---
Discharge Care Plan Diagnosis: (1) Polysubstance abuse (2) Headache (3) Fever (4) IV drug abuse Your Health Problems Are: Inflammation Goals to Promote Your Health * To prevent worsening of your condition and complications * To maintain your health at the optimal level Directions to Meet Your Goals Take your medications as prescribed Follow your dietary instruction Follow activity as directed Keep your appointments as scheduled Take your immunizations and boosters as scheduled If your symptoms worsen call your PCP, if no PCP go to Urgent Care Center or Emergency Room Smoking is Dangerous to Your Health. Avoid second hand smoke Call the 24-hour hour crisis hotline for domestic abuse at Ronit Cartwright Oct 26, 2017 18:01
[2017-10-26] MEDS ORDERED: NOVONP2 SQ ×2 (18:05)
[2017-10-26] MEDS ORDERED: NOVOLOGSS SQ (18:05)
[2017-10-26 18:20] LABS: HEMOGLOBIN A1a 1.4 %; HEMOGLOBIN A1b 2.2 %; HEMOGLOBIN Ao 79.8 %; HEMOGLOBIN LA1C 3.6 %; HEMOGLOBIN P3 4.7 %
[2017-10-26 20:00] VITALS: BP 126/65; PULSE 108; PULSE 98; RESP 18; TEMP 98.9; O2SAT 98
[2017-10-26] MEDS ORDERED: INSULIN HUMAN NPH 1,000 UNITS/10 ML VIAL SQ SCH (21:00)
[2017-10-27] VITALS: BP 120/60; PULSE 99; RESP 17; TEMP 98.4; O2SAT 97
[2017-10-27] MEDS ORDERED: PHARMACY ORDERED LAB ONE (03:45)
[2017-10-27 04:00] VITALS: BP 115/59; PULSE 99; RESP 17; TEMP 98.2; O2SAT 97
[2017-10-27] MEDS: INSULIN ASPART SUPPLEMENTAL SCALE SQ SCH ×2 (07:45→12:03)
[2017-10-27 08:00] VITALS: BP 113/69; PULSE 90; RESP 17; TEMP 96.6; O2SAT 97
[2017-10-27] MEDS ORDERED: INSULIN HUMAN NPH 1,000 UNITS/10 ML VIAL SQ SCH (08:00)
[2017-10-27] MEDS: SODIUM CHLORIDE 0.9% FLUSH 10 ML FLUSH IV FLUSH SCH (08:42)
[2017-10-27 12:00] VITALS: BP 115/67; PULSE 101; RESP 17; TEMP 97.7; O2SAT 95
[2017-10-27] MEDS ORDERED: INSU1MIS15 (12:58)
[2017-10-27] MEDS ORDERED: GLUCKIT15 (12:58)
[2017-10-27] MEDS ORDERED: LANCETS1 MI1 (12:58)
[2017-10-27] MEDS ORDERED: GLUCTES12 (12:58)
--- NOTE | 2017-10-27 13:01 | HHI.DS ---
Discharge Summary Admission Date Oct 24, 2017 at 19:42 Discharge Date: Oct 27, 2017 Admitting Diagnosis Sepsis; Headache; Poss Meningitis (1) Fever ICD Code: R50.9 - Fever, unspecified Diagnosis: Principal Status: Acute (2) Headache ICD Code: R51 - Headache Diagnosis: Principal Status: Acute (3) Polysubstance abuse ICD Code: F19.10 - Other psychoactive substance abuse, uncomplicated Diagnosis: Principal Status: Acute Procedures Non- Brief History - From Admission hx from patient, ER provider communication and review of records bad headaches all day had fever no photophobia no neck rigidty no urine or bowel symptoms no sick contacts no kids in daycare no discharge no sinus symptoms no toothaches uses iv dilaudid daily never had endocarditis prior CBC/BMP: 10/26/17 0950 10/26/17 0950 Significant Findings Laboratory Tests Test 10/24/17 17:20 10/24/17 17:40 10/24/17 20:50 10/25/17 08:24 Urine Color DARK-YELLOW (YELLW/STRAW) Urine Protein 30 mg/dL (NEG-TRACE) Urine Glucose (UA) 1000 mg/dL (NEG) Urine Ketones TRACE mg/dL (NEG) Urine Mucus FEW /lpf (OCC) Urine Opiates Screen POS (NEG) Urine Cocaine Screen POS (NEG) Red Blood Count 4.39 MIL/MM3 (4.50-5.90) 4.27 MIL/MM3 (4.50-5.90) Hematocrit 38.2 % (39.0-51.0) 37.2 % (39.0-51.0) Platelet Count 119 TH/MM3 (150-450) 100 TH/MM3 (150-450) Neutrophils (%) (Auto) 75.3 % (16.0-70.0) Lymphocytes # (Auto) 0.9 TH/MM3 (1.0-4.8) Creatinine 1.41 MG/DL (0.60-1.30) Random Glucose 211 MG/DL (74-106) 200 MG/DL (74-106) Calcium Level 7.8 MG/DL (8.5-10.1) 7.5 MG/DL (8.5-10.1) Magnesium Level 1.4 MG/DL (1.5-2.5) Aspartate Amino Transf (AST/SGOT) 80 U/L (15-37) 63 U/L (15-37) Alanine Aminotransferase (ALT/SGPT) 179 U/L (12-78) 131 U/L (12-78) Sodium Level 133 MEQ/L (136-145) Estimat Glomerular Filtration Rate 55 ML/MIN (>89) 83 ML/MIN (>89) Lactic Acid Level 2.2 mmol/L (0.4-2.0) Troponin I LESS THAN 0.02 NG/ML Hemoglobin 12.6 GM/DL (13.0-17.0) Band Neutrophils % 13 % (0-6) Platelet Estimate LOW (NORMAL) Prothrombin Time 13.8 SEC (9.8-11.6) Albumin 3.0 GM/DL (3.4-5.0) Test 10/25/17 18:35 10/26/17 09:50 Hepatitis C Antibody REACTIVE (NEGATIVE) Red Blood Count 4.07 MIL/MM3 (4.50-5.90) Hemoglobin 12.0 GM/DL (13.0-17.0) Hematocrit 35.3 % (39.0-51.0) Platelet Count 97 TH/MM3 (150-450) Monocytes (%) (Auto) 9.2 % (0.0-8.0) Platelet Estimate LOW (NORMAL) Random Glucose 297 MG/DL (74-106) Albumin 3.1 GM/DL (3.4-5.0) Calcium Level 8.2 MG/DL (8.5-10.1) Aspartate Amino Transf (AST/SGOT) 64 U/L (15-37) Alanine Aminotransferase (ALT/SGPT) 128 U/L (12-78) Sodium Level 132 MEQ/L (136-145) Hemoglobin A1c 7.9 % (4.3-6.0) Imaging Last Impressions Head CT 10/24/17 1821 Signed Impressions: Service Date/Time: Tuesday, October 24, 2017 18:38 - CONCLUSION: No acute disease. Khai Issa MD Chest X-Ray 10/24/17 1719 Signed Impressions: Service Date/Time: Tuesday, October 24, 2017 17:30 - CONCLUSION: No acute cardiopulmonary abnormality is identified. Alexis Suggs MD PE at Discharge GENERAL: This is a well-nourished, well-developed patient, in no apparent distress. SKIN: No rash or lesions CARDIOVASCULAR: Regular rate and rhythm without murmurs, gallops, or rubs. RESPIRATORY: Clear to auscultation. Breath sounds equal bilaterally. No wheezes , rales, or rhonchi. GASTROINTESTINAL: Abdomen soft, non-tender, nondistended. No guarding. MUSCULOSKELETAL: Extremities without clubbing, cyanosis, or edema. No calf tenderness. Track warner bilateral forearms NEUROLOGICAL: Awake and alert. Motor and sensory grossly within normal limits. Normal speech. Hospital Course Likely viral infection. Meningitis suspected with high grade fever, headaches in an ivda with dilaudid on daily basis. Refusing LP. Resolved headache and fever. ID recommended to discontinue meningitic doses of vanco/ rocephin/ acyclovir. Cultures negative so far. Counseled regarding IVDU possible endocarditis. Unremarkable echocardiogram Transaminitis. Patient with hepatitis C. Needs outpatient follow-up Hyperglycemia history of DM . Monitor fingerstick with sliding scale coverage. Stable continue NPH 7 units twice a day. Diabetic education Acute kidney injury secondary to infection. Improved status post IV hydration Acute thrombocytopenia likely secondary to infection. Monitor SCD for dvt prophylaxis Pt Condition on Discharge: Stable Discharge Disposition: Discharge Home Discharge Time: > 30 minutes Discharge Instructions DIET: Follow Instructions for: Heart Healthy Diet Activities you can perform: Regular-No Restrictions Activities to Avoid: Driving Follow up Referrals: Gastroenterology - 1 Week PCP Follow-up - 1 Week New Medications: Blood Glucose Monitoring W/Device (Glucocom Blood Glucose Mo W/Device) 1 Kit Kit KIT .ROUTE DIRECTED for Blood Sugar Management, #1 Glucocom Test Strips (Glucocom Test Strips) 1 Laina Liana EA .ROUTE DIRECTED for Blood Sugar Management, #1 Insulin Syringe/U-100/31G X 5/16" 1 ml (Insulin Syringe/U-100/31G X 5/16" 1 ml) 31 Gauge X 5/16" Mis EA .ROUTE DIRECTED for Blood Sugar Management, #1 0 Refills Lancets (Lancets) 1 Mis Mis EA .ROUTE DIRECTED for Blood Sugar Management, #1 0 Refills Insulin Aspart Inj (Novolog Inj) 100 Unit/Ml Inj 1 UNIT SQ ACHS SLIDING SCALE for Blood Sugar Management, #1 INJECTION Insulin Human NPH Inj (Novolin N Inj) 1,000 Unit/10 Ml Vial 7 UNITS SQ DAILY@08 for Blood Sugar Management, #1 BOTTLE Insulin Human NPH Inj (Novolin N Inj) 1,000 Unit/10 Ml Vial 7 UNITS SQ HS for Blood Sugar Management, #1 BOTTLE Discontinued Medications: Acetaminophen (Tylenol) 325 Mg Tab 650 MG PO Q6H PRN for PAIN SCALE 1 TO 4 for 5 Days, TAB 0 Refills Acyclovir (Acyclovir) 800 Mg Tab 800 MG PO 5 TIMES A DAY for Mgmt Viral Infection for 7 Days, TAB 0 Refills Gabapentin (Gabapentin) 300 Mg Cap 300 MG PO HS for 5 Days, #5 CAP 0 Refills Damien Smith MD Oct 27, 2017 13:01
== END 2017-10-27 16:13 | disposition home or self-care (01) | DRG 866 ==
LOC: NEPE 17:02 → NEDA 19:42 → N07B 21:11
PROVIDERS: ADMIT Internal Medicine; ATTEND Internal Medicine
DX: B34.9 Viral infection, unspecified (principal); N17.9 Acute kidney failure, unspecified; D69.59 Other secondary thrombocytopenia; E11.65 Type 2 diabetes mellitus with hyperglycemia; Z79.4 Long term (current) use of insulin; F19.10 Other psychoactive substance abuse, uncomplicated; R50.9 Fever, unspecified; R51 Headache; R74.0 Nonspecific elevation of levels of transaminase and lactic acid dehydrogenase [LDH]
CPT/HCPCS: 62270; 70450; 71010; 80053; 80074; 80307; 81001; 82550; 82552; 82948; 83036; 83605; 83735; 84484; 85007; 85025; 85027; 85610; 85730; 87040; 87804; 93306; 96361; 96374; 96375; J0133; J0456; J0696; J0780; J1200; J1815; J3370; J7030; J7040; J7050